=== PATIENT | male | born 1955 | race Caucasian/White ===

== ENCOUNTER 2018-10-03 14:02 | Outpatient (REF) | payer OTHER, SELFPAY ==
[2018-10-03 22:02] LABS: Abs Immature Grans 0.09 k/cumm (0.0-0.09); Absolute Basophil Count 0.02 k/cumm (0.0-0.2); Absolute Lymphocyte Count 0.62 k/cumm (1.2-3.4); Basophils % 0.1; HGB 11.5 g/dL (13.5-17.5); Immature Grans % 0.4; Lymphocytes % 2.5; Mean Corp. HGB Concentration 31.9 g/dL (32.0-36.0); Mean Corpuscular Hemoglobin 27.8 pg (27.0-33.0); Mean Platelet Volume 11.4 fL (8.0-11.0); Monocytes % 7.2; Neutrophils % 89.8; Platelet Count 339 x1000/uL (130-400); RBC 4.14 m/cumm (4.50-6.00); RBC Distribution Width 14.9 % (11.8-14.1)
[2018-10-03 22:32] LABS: Anion Gap 12.1 mmol/L (3-11); BUN 11 mg/dL (7-18); CO2 26.9 mmol/L (21.0-32.0); CREATININE 0.91 mg/dL (0.70-1.30); Calcium 8.2 mg/dL (8.5-10.1); Chloride 90 mmol/L (98-107); Cholesterol 144 mg/dL (50-200); Glucose 172 mg/dL (70-100); HDL Cholesterol 49 mg/dL (40-60); LDL CHOLESTEROL 70 mg/dL (<100); Potassium 4.4 mmol/L (3.5-5.1); Sodium 129 mmol/L (136-145); Triglyceride 58 mg/dL (30-150)
[2018-10-03 23:20] LABS: Absolute Monocyte Count 1.78 k/cumm (0.11-0.7); Absolute Neutrophil Count 22.18 k/cumm (1.2-6.7)
[2018-10-03 23:29] LABS: Diff Comment Diff Reviewed; RBC Morphology Normal
== END 2018-10-03 14:22 ==
LOC: NCHCN 14:02
PROVIDERS: PCP Internal Medicine; Visit Provider Family Medicine
DX: E11.9 Type 2 diabetes mellitus without complications (principal); R19.7 Diarrhea, unspecified
CPT/HCPCS: 80048; 80061; 83721; 83036; 85025

== ENCOUNTER 2018-11-16 22:45 | Outpatient (REF) | payer OTHER, SELFPAY ==
[2018-11-16 21:55] LABS: Abs Immature Grans 0.01 k/cumm (0.0-0.09); Absolute Basophil Count 0.02 k/cumm (0.0-0.2); Absolute Eosinophil Count 0.09 k/cumm (0.0-0.7); Absolute Lymphocyte Count 1.01 k/cumm (1.2-3.4); Absolute Monocyte Count 0.57 k/cumm (0.11-0.7); Basophils % 0.3; Eosinophils % 1.2; HCT 35.8 % (40.0-50.0); HGB 10.9 g/dL (13.5-17.5); Immature Grans % 0.1; Lymphocytes % 12.9; Mean Corp. HGB Concentration 30.4 g/dL (32.0-36.0); Mean Corpuscular Hemoglobin 27.1 pg (27.0-33.0); Mean Corpuscular Volume 89.1 fL (80-95); Mean Platelet Volume 10.6 fL (8.0-11.0); Monocytes % 7.3; Neutrophils % 78.2; Platelet Count 313 x1000/uL (130-400); RBC 4.02 m/cumm (4.50-6.00)
== END 2018-11-16 23:05 ==
LOC: NCHCN 22:45
PROVIDERS: PCP Internal Medicine; Visit Provider Internal Medicine
DX: K52.9 Noninfective gastroenteritis and colitis, unspecified (principal)
CPT/HCPCS: 85025

== ENCOUNTER 2019-05-24 11:43 | Outpatient (REF) | payer OTHER, SELFPAY ==
[2019-05-24 20:41] LABS: Anion Gap 7.1 mmol/L (3-11); BUN 6 mg/dL (7-18); CO2 29.9 mmol/L (21.0-32.0); CREATININE 0.57 mg/dL (0.70-1.30); Chloride 102 mmol/L (98-107); Glucose 102 mg/dL (74-106); Potassium 5.2 mmol/L (3.5-5.1); Sodium 139 mmol/L (136-145)
== END 2019-05-24 12:03 ==
LOC: NCHCN 11:43
PROVIDERS: PCP Internal Medicine; Visit Provider Internal Medicine
DX: I10 Essential (primary) hypertension (principal)
CPT/HCPCS: 80048

== ENCOUNTER 2019-10-22 16:36 | Outpatient (REF) | payer OTHER, SELFPAY ==
[2019-10-22 20:57] LABS: BUN 10 mg/dL (7-18); Calcium 8.6 mg/dL (8.5-10.1); Chloride 99 mmol/L (98-107); Glucose 133 mg/dL (74-106); Potassium 4.9 mmol/L (3.5-5.1); Sodium 133 mmol/L (136-145)
== END 2019-10-22 16:56 ==
LOC: NCHCN 16:36
PROVIDERS: PCP Internal Medicine; Visit Provider Internal Medicine
DX: I10 Essential (primary) hypertension (principal)
CPT/HCPCS: 80048

== ENCOUNTER 2019-10-28 12:45 | Outpatient (REF) | payer OTHER, SELFPAY ==
[2019-10-28 20:54] LABS: Iron 79 ug/dL (65-175); Sodium, Urine 37 mmol/L; Total Iron Binding Capacity 393 ug/dL (250-450); Transferrin Sat 20 % (20-55)
[2019-10-28 21:17] LABS: ALT 147 U/L (16-63); AST 73 U/L (15-37); Albumin 4.2 g/dL (3.4-5.0); Alkaline Phosphatase 98 U/L (46-116); Anion Gap 6.2 mmol/L (3-11); BUN 11 mg/dL (7-18); Bilirubin, Total 0.5 mg/dL (0.2-1.0); CO2 29.8 mmol/L (21.0-32.0); CREATININE 0.62 mg/dL (0.70-1.30); Calcium 8.8 mg/dL (8.5-10.1); Chloride 98 mmol/L (98-107); Ferritin 60 ng/mL (26-388); Glucose 100 mg/dL (74-106); Potassium 4.1 mmol/L (3.5-5.1); Sodium 134 mmol/L (136-145); Vitamin B12 301 pg/mL (193-986)
[2019-10-29 16:51] LABS: Osmolality, Urine 182 mOsm/kg (150-1,150)
== END 2019-10-28 13:05 ==
LOC: NCHCN 12:45
PROVIDERS: PCP Internal Medicine; Visit Provider Internal Medicine
DX: R42 Dizziness and giddiness (principal); E66.9 Obesity, unspecified; E87.1 Hypo-osmolality and hyponatremia
CPT/HCPCS: 80053; 83935; 82607; 82728; 83540; 83550; 84300

== ENCOUNTER 2019-10-31 11:49 | Outpatient (REF) | payer OTHER, SELFPAY ==
[2019-11-04 09:57] LABS: HBs Antibody, Quant <3.1 mIU/mL (See Note); Hepatitis B Surface Ab Negative (See Note); Hepatitis B Surface Ag Negative (Negative)
[2019-11-04 10:58] LABS: Hepatitis C Ab w Rflx HCV PCR Negative (Negative)
== END 2019-10-31 12:09 ==
LOC: NCHCN 11:49
PROVIDERS: PCP Internal Medicine; Visit Provider Internal Medicine
DX: R74.0 Nonspecific elevation of levels of transaminase and lactic acid dehydrogenase [LDH] (principal); Z11.59 Encounter for screening for other viral diseases
CPT/HCPCS: 86706; 86803; 87340

== ENCOUNTER 2019-11-13 12:08 | Outpatient (REF) | payer OTHER, MEDICAID, SELFPAY ==
[2019-11-13 21:37] LABS: ALT 94 U/L (16-63); AST 53 U/L (15-37); Albumin 4.5 g/dL (3.4-5.0); Alkaline Phosphatase 114 U/L (46-116); Anion Gap 9.9 mmol/L (3-11); BUN 10 mg/dL (7-18); Bilirubin, Total 0.4 mg/dL (0.2-1.0); CO2 29.1 mmol/L (21.0-32.0); CREATININE 0.79 mg/dL (0.70-1.30); Calcium 8.8 mg/dL (8.5-10.1); Chloride 96 mmol/L (98-107); Glucose 109 mg/dL (74-106); Potassium 4.6 mmol/L (3.5-5.1); Sodium 135 mmol/L (136-145); Total Protein 7.5 g/dL (6.4-8.2)
== END 2019-11-13 12:28 ==
LOC: NCHCN 12:08
PROVIDERS: PCP Internal Medicine; Visit Provider Internal Medicine
DX: I10 Essential (primary) hypertension (principal); E87.1 Hypo-osmolality and hyponatremia
CPT/HCPCS: 80053

== ENCOUNTER 2019-12-18 20:54 | Outpatient (REF) | payer MEDICAID, SELFPAY ==
[2019-12-18 19:50] LABS: ALT 62 U/L (16-63); AST 32 U/L (15-37); Alkaline Phosphatase 86 U/L (46-116); Anion Gap 8.3 mmol/L (3-11); BUN 9 mg/dL (7-18); Bilirubin, Direct 0.15 mg/dL (0.00-0.20); Bilirubin, Total 0.5 mg/dL (0.2-1.0); CO2 27.7 mmol/L (21.0-32.0); CREATININE 0.64 mg/dL (0.70-1.30); Calcium 8.6 mg/dL (8.5-10.1); Chloride 97 mmol/L (98-107); Glucose 137 mg/dL (74-106); Potassium 4.9 mmol/L (3.5-5.1); Sodium 133 mmol/L (136-145); Total Protein 6.9 g/dL (6.4-8.2)
== END 2019-12-18 21:14 ==
LOC: NCHCN 20:54
PROVIDERS: PCP Internal Medicine; Visit Provider Internal Medicine
DX: R74.0 Nonspecific elevation of levels of transaminase and lactic acid dehydrogenase [LDH] (principal); E87.1 Hypo-osmolality and hyponatremia; I10 Essential (primary) hypertension
CPT/HCPCS: 80048; 80076

== ENCOUNTER 2020-09-07 14:15 | Outpatient (REF) | payer MEDICARE, MEDICAID, SELFPAY ==
[2020-09-07 22:01] LABS: COMMENT (LAB VIEW ONLY) < 13.00 mg/dL
== END 2020-09-07 14:16 | disposition home or self-care (01) ==
LOC: NCHCN 14:15
PROVIDERS: PCP Internal Medicine; Visit Provider Internal Medicine
DX: E11.49 Type 2 diabetes mellitus with other diabetic neurological complication (principal); R03.0 Elevated blood-pressure reading, without diagnosis of hypertension; R42 Dizziness and giddiness
CPT/HCPCS: 82043; 82570

== ENCOUNTER 2021-01-08 10:40 | Outpatient (REF) | payer MEDICARE, MEDICAID, SELFPAY ==
[2021-01-08 21:34] LABS: Vitamin B12 156 pg/mL (193-986)
== END 2021-01-08 10:41 | disposition home or self-care (01) ==
LOC: NCHCN 10:40
PROVIDERS: PCP Internal Medicine; Visit Provider Internal Medicine
DX: E11.49 Type 2 diabetes mellitus with other diabetic neurological complication; G62.9 Polyneuropathy, unspecified
CPT/HCPCS: 82607; 84443

== ENCOUNTER 2021-02-05 12:26 | Outpatient (REF) | payer MEDICARE, MEDICAID, SELFPAY ==
[2021-02-05 22:16] LABS: Vitamin B12 861 pg/mL (193-986)
== END 2021-02-05 12:27 | disposition home or self-care (01) ==
LOC: NCHCN 12:26
PROVIDERS: PCP Internal Medicine; Referring Provider Internal Medicine; Visit Provider Internal Medicine
DX: E53.8 Deficiency of other specified B group vitamins (principal)
CPT/HCPCS: 82607

== ENCOUNTER 2021-08-02 13:26 | Outpatient (REF) | payer MEDICARE, MEDICAID, SELFPAY ==
--- OUTSIDE RECORDS SUMMARY | 2021-08-02 13:30 | XMS_ITS | CCD ---
:1955 Author Care Team Providers Name Role Phone Raffy GOMEZ Attending Physician Unavailable Raffy GOMEZ Rounding (Secondary) Physician Unavailab lisa Vital Signs Unknown or Not Available. Allergies Allergy Code Allergy Type Reaction Status No Known Drug 0 No known drug Active Allergies allergies ADHESIVE 0 Allergy to substance RASH, SURGICAL Activ e DRAPES Procedures Unknown or Not Available. History of Immunizations Unknown or Not Available. Problems Problem Code Start Date Resolved Date Status Hyponatremia 98737027 Active Cancer of colon, stage 617615021 Activ e 3 Dizziness 711402100 Active Diabetes 2 53199663 Active HTN 12714377 Active Results Unknown or Not Available. Active Medications Medication Code Dose Units Frequency Route Modification Start Date/Time Tylenol ES 680822 6099 MILLIGRAMS NEEDED ORAL 05/16/20 19 500MG Oral 15:47 Tablet Prescription Detail TAKE 1000 MILLIGRAMS ORAL NEEDED FOR Pain Medications Administered During Visit Unknown or Not Available. Encounters Encounter Diagnosis Diagnosis Code Start Date Peripheral vascular disease [id number] 06/11/2021 Social History Smoking Status Code Start Date End Date Former smoker [id number] 05/29/1969 05/29/1970 Patient Decision Aids Unknown or Not Available. Discharge Instructions You were admitted to [facility] on 06/11/2021 15:50 with a principal diagnosis of Other specified peripheral vascular diseases You were discharged from [facility] on 06/11/2021 00:00 Should you have any questions prior to d ischarge, please contact a member of your healthcare team. If you have left the spital and have any questions, please contact your primary care physician. Chief Complaint and Reason For Visit Unknown or Not Available. Function Status Unknown or Not Available. Plan of Care Unknown or Not Available. Referral/Transition of Care Unknown or Not Available.
--- OUTSIDE RECORDS SUMMARY | 2021-08-02 13:30 | XMS_ITS | CCD ---
:1955 Author Care Team Providers Name Role Phone JUSTIN Attending Physician Unavailable JUSTIN Rounding (Secondary) Physician Unavailab le Vital Signs Unknown or Not Available. Allergies Allergy Code Allergy Type Reaction Status No Known Drug 0 No known drug Active Allergies allergies ADHESIVE 0 Allergy to substance RASH, SURGICAL Activ e DRAPES Procedures Unknown or Not Available. History of Immunizations Unknown or Not Available. Problems Problem Code Start Date Resolved Date Status Hyponatremia 88968943 Active Cancer of colon, stage 126758484 Activ e 3 Dizziness 259693407 Active Diabetes 2 36994455 Active HTN 74428555 Active Results Unknown or Not Available. Active Medications Medication Code Dose Units Frequency Route Modification Start Date/Time Tylenol ES 327792 1895 MILLIGRAMS NEEDED ORAL 05/16/20 19 500MG Oral 15:47 Tablet Prescription Detail TAKE 1000 MILLIGRAMS ORAL NEEDED FOR Pain Medications Administered During Visit Unknown or Not Available. Encounters Encounter Diagnosis Diagnosis Code Start Date Dizziness and giddiness R42 06/10/2021 Social History Smoking Status Code Start Date End Date Former smoker [id number] 05/29/1969 05/29/1970 Patient Decision Aids Unknown or Not Available. Discharge Instructions You were admitted to [facility] on 06/10/2021 15:39 with a principal diagnosis of Dizziness and giddiness You were discharged from [facility] on 06/10/2021 00:00 Should you have any questions prior [...]
--- OUTSIDE RECORDS SUMMARY | 2021-08-02 13:30 | XMS_ITS | CCD ---
[...] Code Start Date Resolved Date Status Hyponatremia 85786436 Active Cancer of colon, stage 331782462 Activ e 3 Dizziness 018169534 Active Diabetes 2 94395919 Active HTN 88330487 Active Results Unknown or Not Available. Active Medications Medication Code Dose Units Frequency Route Modification Start Date/Time Tylenol ES 537988 6716 MILLIGRAMS NEEDED ORAL 05/16/20 19 500MG Oral 15:47 Tablet Prescription Detail TAKE 1000 MILLIGRAMS ORAL NEEDED FOR Pain Medications Administered During Visit Unknown or Not Available. 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 Discharge Instructions You were admitted to 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
--- OUTSIDE RECORDS SUMMARY | 2021-08-02 13:30 | XMS_ITS | CCD ---
[...] Code Start Date Resolved Date Status Hyponatremia 76236889 Active Cancer of colon, stage 456077462 Activ e 3 Dizziness 061929097 Active Diabetes 2 73997430 Active HTN 35809170 Active Results COMPREHENSIVE METABOLIC PANEL (CMP) - Co llect Date/Time: 04/29/2021 10:23 Test Name Code Test Result Test Units Test Ref Range GLUCOSE 2345-7 120 mg/dL L=70 H=11 6 BUN 3094-0 16 mg/dL L=6 H=25 CREATININE 2160-0 0.63 mg/dL L=0.67 H=1.17 SODIUM SERUM 2951-2 141 mmol/L L=136 H=14 5 POTASSIUM SERUM 2823-3 5.4 mmol/L L=3.4 H =5.2 CHLORIDE SERUM 2075-0 103 mmol/L L=96 H= 110 CARBON DIOXIDE (CO2) 2028-9 33 mmol/L L=22 H=34 ANION GAP 17583-0 5.4 mmol/L CALCIUM SERUM 50113-7 9.0 mg/dL L=8.2 H=10.2 BILIRUBIN TOTAL 1975-2 0.4 mg/dL L=0.0 H =1.3 ALK. PHOS. 6768-6 85 U/L L=46 H=11 6 SGOT (AST) 1920-8 20 U/L L=15 H=37 SGPT (ALT) 1742-6 34 U/L L=12 H=78 TOTAL PROTEIN 2885-2 7.5 gm/dL L=6.0 H=8 .0 ALBUMIN 1751-7 4.1 gm/dL L=3.4 H=5. 0 AGE 66 years eGFR (non-Afr.Amer.) 26874-5 >120 mL/min eGFR (Afr-[place]ozambican) 57731-7 >120 mL/min TSH THYROID STIMULATING HORMONE* - Colle ct Date/Time: 04/29/2021 10:23 Test Name Code Test Result Test Units Test Ref Range TSH 3014-8 1.997 uIU/mL L=0.360 H=3. 740 Active Medications Medication Code Dose Units Frequency Route Modification Start Date/Time Tylenol ES 801540 3711 MILLIGRAMS NEEDED ORAL 05/16/20 19 500MG Oral 15:47 Tablet Prescription Detail TAKE 1000 MILLIGRAMS ORAL NEEDED FOR Pain Medications Administered During Visit Unknown or Not Available. Encounters Encounter Diagnosis Diagnosis Code Start Date Other fatigue R5383 04/29/2021 Social History Smoking Status Code Start Date End Date Former smoker [id number] 05/29/1969 05/29/1970 Patient Decision Aids Unknown or Not Available. Discharge Instructions You were admitted to [facility] on 04/29/2021 15:12 with a principal diagnosis of Other fatigue You had the following tests done: COMPREHENSIVE METABOLIC PANEL (CMP) TSH THYROID STIMULATING H ORMONE* You were discharged from [facility] on 04/29/2021 00:00 Should you have any questions prior to d ischarge, please contact a member of your healthcare team. If you have left the ho spital and have any questions, please contact your primary care physician. Chief Complaint and Reason For Visit Unknown or Not Available. Function Status Unknown or Not Available. Plan of Care Unknown or Not Available. Referral/Transition of Care Unknown or Not Available.
--- OUTSIDE RECORDS SUMMARY | 2021-08-02 13:31 | XMS_ITS | CCD ---
:1955 Author Care Team Providers Name Role Phone LETTY GOMEZ Attending Physician Unavailable Vital Signs Unknown or Not Available. Allergies Allergy Code Allergy Type Reaction Status No Known Drug 0 No known drug Active Allergies allergies ADHESIVE 0 Allergy to substance RASH, SURGICAL Activ e DRAPES Procedures Unknown or Not Available. History of Immunizations Unknown or Not Available. Problems Problem Code Start Date Resolved Date Status Hyponatremia 35924776 Active Cancer of colon, stage 157952981 Activ e 3 Dizziness 885424402 Active Diabetes 2 97046402 Active HTN 81331108 Active Results Unknown or Not Available. Active Medications Medication Code Dose Units Frequency Route Modification Start Date/Time Tylenol ES 456819 0117 MILLIGRAMS NEEDED ORAL 05/16/20 19 500MG Oral 15:47 Tablet Prescription Detail TAKE 1000 MILLIGRAMS ORAL NEEDED FOR Pain Medications Administered During Visit Unknown or Not Available. Encounters Encounter Diagnosis Diagnosis Code Start Date Follow-up orthopedic assessment [id number] 11/28/19 21 Social History Smoking Status Code Start Date End Date Former smoker [id number] 05/29/1969 05/29/1970 Patient Decision Aids Unknown or Not Available. Discharge Instructions You were admitted to [facility] on 11/27/2020 09:37 with a principal diagnosis of Encounter for other orthope dic aftercare You were discharged from [facility] on 11/27/2020 09:37 Should you have any questions prior to [...]
--- OUTSIDE RECORDS SUMMARY | 2021-08-02 13:31 | XMS_ITS | CCD ---
:1955 Author Care Team Providers Name Role Phone YAKOV Attending Physician Unavailable Vital Signs Unknown or Not Available. Allergies Allergy Code Allergy Type Reaction Status No Known Drug 0 No known drug Active Allergies allergies ADHESIVE 0 Allergy to substance RASH, SURGICAL Activ e DRAPES Procedures Unknown or Not Available. History of Immunizations Unknown or Not Available. Problems Problem Code Start Date Resolved Date Status Hyponatremia 57561073 Active Cancer of colon, stage 868595821 Activ e 3 Dizziness 248941153 Active Diabetes 2 57713843 Active HTN 59254961 Active Results BUN/CREATININE RATIO FOR RADIOLOGY* - Nc llect Date/Time: 07/05/2021 08:14 Test Name Code Test Result Test Units Test Ref Range BUN 3094-0 17 mg/dL L=6 H=25 CREATININE 2160-0 0.67 mg/dL L=0.67 H=1.17 BUN/CREATININE RATIO 3097-3 25.4 AGE 66 years eGFR (non-Afr.Amer) 32744-6 119 mL/min eGFR (Afr-Kenyan) 58112-5 >120 mL/min COMPREHENSIVE METABOLIC PANEL (CMP) - Nc llect Date/Time: 07/05/2021 08:14 Test Name Code Test Result Test Units Test Ref Range GLUCOSE 2345-7 112 mg/dL L=70 H=11 6 BUN 3094-0 17 mg/dL L=6 H=25 CREATININE 2160-0 0.67 mg/dL L=0.67 H=1.17 SODIUM SERUM 2951-2 136 mmol/L L=136 H=14 5 POTASSIUM SERUM 2823-3 4.9 mmol/L L=3.4 H =5.2 CHLORIDE SERUM 2075-0 100 mmol/L L=96 H= 110 CARBON DIOXIDE (CO2) 2028-9 32 mmol/L L=22 H=34 ANION GAP 32686-7 3.9 mmol/L CALCIUM SERUM 17966-4 8.6 mg/dL L=8.2 H=10.2 BILIRUBIN TOTAL 1975-2 0.4 mg/dL L=0.0 H =1.3 ALK. PHOS. 6768-6 77 U/L L=46 H=11 6 SGOT (AST) 1920-8 18 U/L L=15 H=37 SGPT (ALT) 1742-6 37 U/L L=12 H=78 TOTAL PROTEIN 2885-2 7.3 gm/dL L=6.0 H=8 .0 ALBUMIN 1751-7 4.1 gm/dL L=3.4 H=5. 0 AGE 66 years eGFR (non-Afr.Amer.) 29874-2 119 mL/min eGFR (Afr-Kenyan) 95861-4 >120 mL/min CBC W/ DIFFERENTIAL* - Collect Date/Time : 07/05/2021 08:14 Test Name Code Test Result Test Units Test Ref Range WBC 6690-2 6.10 th/cmm L=5.00 H=10.00 NEUT % 75.0 % L=40.0 H=80.0 LYMPH % 15.7 % L=10.0 H=50.0 MONO % 47698-7 7.4 % L=2.0 H=12.0 EOS % 1.1 % L=0.0 H=8. 0 BASO % 0.5 % L=0.0 H=3. 0 IG % 2514-8 0.3 % L=0.0 H=1. 1 NRBC % 79645-9 0.0 % L=0.0 H=0. 0 NEUT abs count 751-8 4.6 th/cmm L=1.6 H= 8.4 LYMPH abs count 731-0 1.0 th/cmm L=1.5 H =4.0 MONO abs count 742-7 0.5 th/cmm L=0.2 H= 1.0 EOS abs count 711-2 0.1 th/cmm L=0.0 H=0 .5 BASO abs count 704-7 0.0 th/cmm L=0.0 H= 0.2 IG abs count 46182-0 0.0 th/cmm L=0.0 H=0. 1 NRBC abs count 14866-3 0.0 mil/cmm L=0.0 H= 0.0 RBC 789-8 4.59 mil/cmm L=4.30 H=6.20 HEMOGLOBIN 718-7 15.0 gm/dL L=13.0 H=17.0 HEMATOCRIT 4544-3 45 % L=45 H=52 MCV 787-2 97 fL L=82 H=92 MCH 785-6 32.7 pg L=27.0 H=31.0 MCHC 786-4 33.7 % L=32.0 H=36.0 RDW-SD 788-0 44.9 fL L=39.0 H=49.0 PLATELET COUNT 777-3 157 th/cmm L=150 H= 450 CEA* - Collect Date/Time: 07/05/2021 08: 14 Test Name Code Test Result Test Units Test Ref Range Carcinoembryonic Antigen 2.4 N/A See Note Active Medications Medication Code Dose Units Frequency Route Modification Start Date/Time Tylenol ES 964154 2008 MILLIGRAMS NEEDED ORAL 05/16/20 19 500MG Oral 15:47 Tablet Prescription Detail TAKE 1000 MILLIGRAMS ORAL NEEDED FOR Pain Medications Administered During Visit Unknown or Not Available. Encounters Encounter Diagnosis Diagnosis Code Start Date Primary malignant neoplasm of colon 05865443 11/2021 Social History Smoking Status Code Start Date End Date Former smoker [id number] 05/29/1969 05/29/1970 Patient Decision Aids Unknown or Not Available. Discharge Instructions You were admitted to [facility] on 07/05/2021 07:58 with a principal diagnosis of Malignant neoplasm of colon , unspecified You had the following tests done: BUN/CREATININE RATIO FOR RADIOLOGY* CBC W/ DIFFERENTIAL* CEA* COMPREHENSIVE METABOLIC PANEL (CMP) You were discharged from [facility] on 07/05/2021 07:59 Should you have any questions prior to d ischarge, please contact a member of your healthcare team. If you have left the ho spital and have any questions, please contact your primary care physician. Chief Complaint and Reason For Visit Chief Complaint Date of Onset MALIGNANT NEOPLASM OF COLON Function Status Unknown or Not Available. Plan of Care Unknown or Not Available. Referral/Transition of Care Unknown or Not Available.
--- OUTSIDE RECORDS SUMMARY | 2021-08-02 13:31 | XMS_ITS | CCD ---
[...] Code Start Date Resolved Date Status Hyponatremia 82660903 Active Cancer of colon, stage 166466273 Activ e 3 Dizziness 758885871 Active Diabetes 2 99277190 Active HTN 85679972 Active Results Unknown or Not Available. Active Medications Medication Code Dose Units Frequency Route Modification Start Date/Time Tylenol ES 205815 7442 MILLIGRAMS NEEDED ORAL 05/16/20 19 500MG Oral 15:47 Tablet Prescription Detail TAKE 1000 MILLIGRAMS ORAL NEEDED FOR Pain Medications Administered During Visit Unknown or Not Available. Encounters Encounter Diagnosis Diagnosis Code Start Date Encounter for follow-up examination after Z08 07/07/2021 completed treatment for malignant neoplasm Social History Smoking Status Code Start Date End Date Former smoker [id number] 05/29/1969 05/29/1970 Patient Decision Aids Unknown or Not Available. Discharge Instructions You were admitted to [facility] on 07/07/2021 11:13 with a principal diagnosis of Encounter for follow-up exa mination after completed treatment for malignant neoplasm You were discharged from [facility] on 07/07/2021 11:14 Should you have any questions prior to [...]
--- OUTSIDE RECORDS SUMMARY | 2021-08-02 13:32 | XMS_ITS | CCD ---
[...] Code Start Date Resolved Date Status Hyponatremia 67494180 Active Cancer of colon, stage 276629776 Activ e 3 Dizziness 719421847 Active Diabetes 2 56235908 Active HTN 45986017 Active Results Unknown or Not Available. Active Medications Medication Code Dose Units Frequency Route Modification Start Date/Time Tylenol ES 398631 9674 MILLIGRAMS NEEDED ORAL 05/16/20 19 500MG Oral 15:47 Tablet Prescription Detail TAKE 1000 MILLIGRAMS ORAL NEEDED FOR Pain Medications Administered During Visit Unknown or Not Available. Encounters Encounter Diagnosis Diagnosis Code Start Date Encounter for follow-up examination after Z08 01/06/2021 completed treatment for malignant neoplasm Social History Smoking Status Code Start Date End Date Former smoker [id number] 05/29/1969 05/29/1970 Patient Decision Aids Unknown or Not Available. Discharge Instructions You were admitted to [facility] on 01/06/2021 10:43 with a principal diagnosis of Encounter for follow-up exa mination after completed treatment for malignant neoplasm You were discharged from [facility] on 01/06/2021 10:43 Should you have any questions prior to [...]
--- OUTSIDE RECORDS SUMMARY | 2021-08-02 13:32 | XMS_ITS | CCD ---
:1955 Author Care Team Providers Name Role Phone Jeffery VALDEZ MD Attending Physician Unavailable Vital Signs Unknown or Not Available. Allergies Allergy Code Allergy Type Reaction Status No Known Drug 0 No known drug Active Allergies allergies ADHESIVE 0 Allergy to substance RASH, SURGICAL Activ e DRAPES Procedures Unknown or Not Available. History of Immunizations Unknown or Not Available. Problems Problem Code Start Date Resolved Date Status Hyponatremia 16241996 Active Cancer of colon, stage 362020065 Activ e 3 Dizziness 447380233 Active Diabetes 2 67625041 Active HTN 52763911 Active Results COMPREHENSIVE METABOLIC PANEL (CMP) - Co llect Date/Time: 12/21/2020 08:28 Test Name Code Test Result Test Units Test Ref Range GLUCOSE 2345-7 111 mg/dL L=70 H=11 6 BUN 3094-0 10 mg/dL L=6 H=25 CREATININE 2160-0 0.47 mg/dL L=0.67 H=1.17 SODIUM SERUM 2951-2 135 mmol/L L=136 H=14 5 POTASSIUM SERUM 2823-3 5.2 mmol/L L=3.4 H =5.2 CHLORIDE SERUM 2075-0 100 mmol/L L=96 H= 110 CARBON DIOXIDE (CO2) 2028-9 27 mmol/L L=22 H=34 ANION GAP 45668-3 7.7 mmol/L CALCIUM SERUM 10566-7 8.3 mg/dL L=8.2 H=10.2 BILIRUBIN TOTAL 1975-2 0.6 mg/dL L=0.0 H =1.3 ALK. PHOS. 6768-6 96 U/L L=46 H=11 6 SGOT (AST) 1920-8 21 U/L L=15 H=37 SGPT (ALT) 1742-6 30 U/L L=12 H=78 TOTAL PROTEIN 2885-2 7.4 gm/dL L=6.0 H=8 .0 ALBUMIN 1751-7 3.9 gm/dL L=3.4 H=5. 0 AGE 65 years eGFR (non-Afr.Amer.) 13203-7 >120 mL/min eGFR (Afr-Bahamian) 32392-3 >120 mL/min CBC W/ DIFFERENTIAL - Collect Date/Time: 12/21/2020 08:28 Test Name Code Test Result Test Units Test Ref Range WBC 6690-2 5.72 th/cmm L=5.00 H=10.00 NEUT % 75.8 % L=40.0 H=80.0 LYMPH % 15.4 % L=10.0 H=50.0 MONO % 52638-3 7.2 % L=2.0 H=12.0 EOS % 1.0 % L=0.0 H=8. 0 BASO % 0.3 % L=0.0 H=3. 0 IG % 2514-8 0.3 % L=0.0 H=1. 1 NRBC % 04795-9 0.0 % L=0.0 H=0. 0 NEUT abs count 751-8 4.3 th/cmm L=1.6 H= 8.4 LYMPH abs count 731-0 0.9 th/cmm L=1.5 H =4.0 MONO abs count 742-7 0.4 th/cmm L=0.2 H= 1.0 EOS abs count 711-2 0.1 th/cmm L=0.0 H=0 .5 BASO abs count 704-7 0.0 th/cmm L=0.0 H= 0.2 IG abs count 82221-4 0.0 th/cmm L=0.0 H=0. 1 NRBC abs count 52918-7 0.0 mil/cmm L=0.0 H= 0.0 RBC 789-8 4.56 mil/cmm L=4.30 H=6.20 HEMOGLOBIN 718-7 14.6 gm/dL L=13.0 H=17.0 HEMATOCRIT 4544-3 44 % L=45 H=52 MCV 787-2 95 fL L=82 H=92 MCH 785-6 32.0 pg L=27.0 H=31.0 MCHC 786-4 33.6 % L=32.0 H=36.0 RDW-SD 788-0 45.3 fL L=39.0 H=49.0 PLATELET COUNT 777-3 INVALID N/A L=150 H= [address] invalid N/A Platelet est. Adequate N/A CEA - Collect Date/Time: 12/21/2020 08:2 8 Test Name Code Test Result Test Units Test Ref Range Carcinoembryonic Antigen 2.1 N/A See Note Active Medications Medication Code Dose Units Frequency Route Modification Start Date/Time Tylenol ES 137554 6386 MILLIGRAMS NEEDED ORAL 05/16/20 19 500MG Oral 15:47 Tablet Prescription Detail TAKE 1000 MILLIGRAMS ORAL NEEDED FOR Pain Medications Administered During Visit Unknown or Not Available. Encounters Encounter Diagnosis Diagnosis Code Start Date Malignant neoplasm of colon, unspecified C189 12/21/2020 Social History Smoking Status Code Start Date End Date Former smoker [id number] 05/29/1969 05/29/1970 Patient Decision Aids Unknown or Not Available. Discharge Instructions You were admitted to [facility] on 12/21/2020 08:08 with a principal diagnosis of Malignant neoplasm of colon , unspecified You had the following tests done: CBC W/ DIFFERENTIAL CEA COMPREHENSIVE METABOLIC PANEL (CM P) You were discharged from on 12/21/2020 08:08 Should you have any questions prior to [...]
--- OUTSIDE RECORDS SUMMARY | 2021-08-02 13:32 | XMS_ITS | CCD ---
:1955 Author Care Team Providers Name Role Phone MD DREA Attending Physician Unavailable Vital Signs Unknown or Not Available. Allergies Allergy Code Allergy Type Reaction Status No Known Drug 0 No known drug Active Allergies allergies ADHESIVE 0 Allergy to substance RASH, SURGICAL Activ e DRAPES Procedures Unknown or Not Available. History of Immunizations Unknown or Not Available. Problems Problem Code Start Date Resolved Date Status Hyponatremia 23175736 Active Cancer of colon, stage 203031371 Activ e 3 Dizziness 364495835 Active Diabetes 2 22085560 Active HTN 06182741 Active Results Unknown or Not Available. Active Medications Medication Code Dose Units Frequency Route Modification Start Date/Time Tylenol ES 609077 9575 MILLIGRAMS NEEDED ORAL 05/16/20 19 500MG Oral 15:47 Tablet Prescription Detail TAKE 1000 MILLIGRAMS ORAL NEEDED FOR Pain Medications Administered During Visit Unknown or Not Available. Encounters Encounter Diagnosis Diagnosis Code Start Date Follow-up orthopedic assessment [id number] 11/20/19 21 Social History Smoking Status Code Start Date End Date Former smoker [id number] 05/29/1969 05/29/1970 Patient Decision Aids Unknown or Not Available. Discharge Instructions You were admitted to [facility] on 11/19/2020 10:05 with a principal diagnosis of Encounter for other orthope dic aftercare You were discharged from [facility] on 11/19/2020 10:05 Should you have any questions prior to [...]
--- OUTSIDE RECORDS SUMMARY | 2021-08-02 13:32 | XMS_ITS | CCD ---
[...] Code Start Date Resolved Date Status Hyponatremia 58734399 Active Cancer of colon, stage 276746611 Activ e 3 Dizziness 616680020 Active Diabetes 2 71283611 Active HTN 52021806 Active Results Unknown or Not Available. Active Medications Medication Code Dose Units Frequency Route Modification Start Date/Time Tylenol ES 710130 2374 MILLIGRAMS NEEDED ORAL 05/16/20 19 500MG Oral 15:47 Tablet Prescription Detail TAKE 1000 MILLIGRAMS ORAL NEEDED FOR Pain Medications Administered During Visit Unknown or Not Available. Encounters Encounter Diagnosis Diagnosis Code Start Date Follow-up orthopedic assessment [id number] 12/19/19 21 Social History Smoking Status Code Start Date End Date Former smoker [id number] 05/29/1969 05/29/1970 Patient Decision Aids Unknown or Not Available. Discharge Instructions You were admitted to [facility] on 12/18/2020 11:02 with a principal diagnosis of Encounter for other orthope dic aftercare You were discharged from [facility] on 12/18/2020 11:02 Should you have any questions prior to [...]
--- OUTSIDE RECORDS SUMMARY | 2021-08-02 13:32 | XMS_ITS | CCD ---
:1955 Author Care Team Providers Name Role Phone LETTY GOMEZ Attending Physician Unavailable Vital Signs Unknown or Not Available. Allergies Allergy Code Allergy Type Reaction Status No Known Drug 0 No known drug Active Allergies allergies ADHESIVE 0 Allergy to substance RASH, SURGICAL Activ e DRAPES Procedures Procedure Code Procedure Type Date Paring/Cutting, Benign Hyperkeratotic 95755 CPT 01/11/2021 Lesion; 2-4 Lesions History of Immunizations Unknown or Not Available. Problems Problem Code Start Date Resolved Date Status Hyponatremia 46521244 Active Cancer of colon, stage 210907622 Activ e 3 Dizziness 443885428 Active Diabetes 2 31263208 Active HTN 67116494 Active Results Unknown or Not Available. Active Medications Medication Code Dose Units Frequency Route Modification Start Date/Time Tylenol ES 223155 0075 MILLIGRAMS NEEDED ORAL 05/16/20 19 500MG Oral 15:47 Tablet Prescription Detail TAKE 1000 MILLIGRAMS ORAL NEEDED FOR Pain Medications Administered During Visit Unknown or Not Available. 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
[2021-08-02 15:46] LABS: ALT 26 U/L (16-63); AST 17 U/L (15-37); Albumin 4.1 g/dL (3.4-5.0); Alkaline Phosphatase 65 U/L (46-116); Anion Gap 7.6 mmol/L (3-11); BUN 8 mg/dL (7-18); Bilirubin, Total 0.6 mg/dL (0.2-1.0); CO2 28.4 mmol/L (21.0-32.0); CREATININE 0.6 mg/dL (0.70-1.30); Calcium 8.7 mg/dL (8.5-10.1); Chloride 98 mmol/L (98-107); Glucose 99 mg/dL (74-106); Potassium 4.9 mmol/L (3.5-5.1); Sodium 134 mmol/L (136-145)
[2021-08-02 15:59] LABS: Hemoglobin A1C 6.1 % (<5.7)
[2021-08-02 22:38] LABS: Vitamin B12 677 pg/mL (211-911)
== END 2021-08-02 13:27 | disposition home or self-care (01) ==
LOC: NCHCN 13:26
PROVIDERS: PCP Internal Medicine; Visit Provider Internal Medicine
DX: E11.49 Type 2 diabetes mellitus with other diabetic neurological complication (principal); C18.9 Malignant neoplasm of colon, unspecified; E53.8 Deficiency of other specified B group vitamins
CPT/HCPCS: 80053; 82607; 83036

== ENCOUNTER 2022-02-21 13:15 | Outpatient (REF) | payer MEDICARE, MEDICAID, SELFPAY ==
[2022-02-21 21:40] LABS: COMMENT (LAB VIEW ONLY) 13.54 mg/dL; Microalb ug/mg Crea 24.4 ug/mg Cr
== END 2022-02-21 13:16 | disposition home or self-care (01) ==
LOC: NCHCN 13:15
PROVIDERS: PCP Internal Medicine; Visit Provider Internal Medicine
DX: E11.49 Type 2 diabetes mellitus with other diabetic neurological complication (principal); C18.9 Malignant neoplasm of colon, unspecified; R42 Dizziness and giddiness; F43.9 Reaction to severe stress, unspecified; G31.84 Mild cognitive impairment of uncertain or unknown etiology
CPT/HCPCS: 82043; 82570

== ENCOUNTER 2023-02-20 21:38 | Outpatient (REF) | payer MEDICARE, MEDICAID, SELFPAY ==
[2023-02-20 23:03] LABS: COMMENT (LAB VIEW ONLY) 130.31 mg/dL; Microalb ug/mg Crea 18.2 ug/mg Cr
== END 2023-02-20 21:39 | disposition home or self-care (01) ==
LOC: NCHCN 21:38
PROVIDERS: PCP Internal Medicine; Visit Provider Internal Medicine
DX: E11.49 Type 2 diabetes mellitus with other diabetic neurological complication (principal); R42 Dizziness and giddiness
CPT/HCPCS: 82043; 82570

== ENCOUNTER 2023-08-04 11:58 | Outpatient (REF) | payer MEDICARE, MEDICAID, SELFPAY ==
[2023-08-04 15:06] LABS: Calculated LDL 87 mg/dL (<100); Cholesterol 165 mg/dL (<200); HDL Cholesterol 67 mg/dL (40-60); Triglyceride 55 mg/dL (<150); Vitamin B12 499 pg/mL (193-986)
== END 2023-08-04 11:59 | disposition home or self-care (01) ==
LOC: NCHCN 11:58
PROVIDERS: PCP Internal Medicine; Visit Provider Internal Medicine
DX: E11.9 Type 2 diabetes mellitus without complications (principal); E53.8 Deficiency of other specified B group vitamins; Z13.6 Encounter for screening for cardiovascular disorders
CPT/HCPCS: 80061; 82607; 83036

== ENCOUNTER 2023-08-21 12:43 | Outpatient (REF) | payer MEDICARE, MEDICAID, SELFPAY ==
[2023-08-21 18:26] LABS: COMMENT (LAB VIEW ONLY) 195.83 mg/dL; Microalb ug/mg Crea 20.8 ug/mg Cr
== END 2023-08-21 12:44 | disposition home or self-care (01) ==
LOC: NCHCN 12:43
PROVIDERS: PCP Internal Medicine; Visit Provider Internal Medicine
DX: E11.9 Type 2 diabetes mellitus without complications (principal)
CPT/HCPCS: 82043; 82570

== ENCOUNTER 2024-03-22 12:53 | Outpatient (REF) | payer MEDICARE, MEDICAID, SELFPAY ==
[2024-03-22 14:33] LABS: Anion Gap 5.7 mmol/L (3-11); BUN 10 mg/dL (7-18); CO2 29.3 mmol/L (21.0-32.0); CREATININE 0.7 mg/dL (0.70-1.30); Calcium 9.1 mg/dL (8.5-10.1); Chloride 103 mmol/L (98-107); Estimated GFR 99.74 (mL/min/1.73m2); Glucose 129 mg/dL (74-106); Potassium 5.2 mmol/L (3.5-5.1); Sodium 138 mmol/L (136-145)
== END 2024-03-22 12:54 | disposition home or self-care (01) ==
LOC: NCHCN 12:53
PROVIDERS: PCP Internal Medicine; Visit Provider Internal Medicine
DX: E11.9 Type 2 diabetes mellitus without complications (principal)
CPT/HCPCS: 80048; 83036

== ENCOUNTER 2024-09-23 11:54 | Outpatient (REF) | payer MEDICARE, SELFPAY ==
[2024-09-23 16:23] LABS: Hemoglobin A1C 6.3 % (<5.7)
[2024-09-23 17:28] LABS: Anion Gap 10.8 mmol/L (3-11); BUN 15 mg/dL (7-18); CO2 25.2 mmol/L (21.0-32.0); CREATININE 0.7 mg/dL (0.70-1.30); Calculated LDL 106 mg/dL (<100); Chloride 104 mmol/L (98-107); Cholesterol 191 mg/dL (<200); Estimated GFR 99.74 (mL/min/1.73m2); Glucose 122 mg/dL (74-106); HDL Cholesterol 76 mg/dL (>or=40); Potassium 4.7 mmol/L (3.5-5.1); Sodium 140 mmol/L (136-145); Triglyceride 47 mg/dL (<150)
[2024-09-23 18:56] LABS: Uric Acid 4.9 mg/dL (3.5-7.2)
== END 2024-09-23 11:55 | disposition home or self-care (01) ==
LOC: NCHCN 11:54
PROVIDERS: PCP Internal Medicine; Visit Provider Internal Medicine
DX: E11.9 Type 2 diabetes mellitus without complications (principal)
CPT/HCPCS: 80048; 80061; 83036; 84550

== ENCOUNTER 2024-09-30 21:18 | Outpatient (REF) | payer MEDICARE, SELFPAY ==
[2024-10-01 00:49] LABS: COMMENT (LAB VIEW ONLY) 100.61 mg/dL; Microalb ug/mg Crea 42.2 ug/mg Cr
== END 2024-09-30 21:19 | disposition home or self-care (01) ==
LOC: NCHCN 21:18
PROVIDERS: PCP Internal Medicine; Visit Provider Internal Medicine
DX: E11.9 Type 2 diabetes mellitus without complications (principal)
CPT/HCPCS: 82043; 82570

== ENCOUNTER 2025-03-19 12:56 | Outpatient (REF) | payer MEDICARE, SELFPAY | END 2025-03-19 12:57 | disposition home or self-care (01) | LOC: NCHCN 12:56 | PROVIDERS: PCP Internal Medicine; Visit Provider Internal Medicine | DX: R39.9 Unspecified symptoms and signs involving the genitourinary system (principal) | CPT/HCPCS: 87077; 87086; 87186 ==

== ENCOUNTER 2025-03-25 14:42 | Outpatient (REF) | payer MEDICARE, SELFPAY ==
[2025-03-25 16:11] LABS: Calculated LDL 104 mg/dL (<100); Cholesterol 183 mg/dL (<200); HDL Cholesterol 67 mg/dL (>or=40); Triglyceride 63 mg/dL (<150)
[2025-03-25 16:33] LABS: Hemoglobin A1C 6.3 % (<5.7)
[2025-03-25 23:32] LABS: PSA, Screening 3.3 ng/mL (<=6.5)
== END 2025-03-25 14:43 | disposition home or self-care (01) ==
LOC: NCHCN 14:42
PROVIDERS: PCP Internal Medicine; Visit Provider Internal Medicine
DX: E11.9 Type 2 diabetes mellitus without complications (principal); Z12.5 Encounter for screening for malignant neoplasm of prostate
CPT/HCPCS: 80061; 84153; 83036